=== PATIENT | female | born 1995 | race Caucasian/White ===

== ENCOUNTER 2023-02-07 03:39 | Emergency (ER) | payer OTHER ==
--- NOTE | 2023-02-07 03:48 | NUR ---
PT CALLED TO TRIAGE, NO RESPONSE.
--- NOTE | 2023-02-07 04:00 | NUR ---
PT CALLED TO TRIAGE NO RESPONSE.
== END 2023-02-07 04:47 | disposition left against medical advice (07) ==
LOC: ER 03:39
DX: Z53.21 Procedure and treatment not carried out due to patient leaving prior to being seen by health care provider (principal)

== ENCOUNTER 2023-02-10 08:53 | Emergency (ER) | payer OTHER ==
[~2023-02-10] VITALS: Ht 170.2 cm; Wt 77.1 kg
--- NOTE | 2023-02-10 09:20 | NUR ---
I had an allergic Reaction to Amox 1wk ago was given benadryl/steroids
[2023-02-10] MEDS ORDERED: LIDOCAINE VISCOUS 2% UD 15 ML UDC MM ONE (09:30)
--- NOTE | 2023-02-10 09:30 | NUR ---
DR CHAVEZ AT BEDSIDE FOR EVAL
[2023-02-10] MEDS ORDERED: LIDOCAINE VISCOUS 2% UD 15 ML UDC ONE (09:34)
--- NOTE | 2023-02-10 09:40 | NUR ---
PT GIVEN MEDICATION PO, [id number] VISCOUS
--- NOTE | 2023-02-10 09:47 | NUR ---
Patient discharged to home in stable condition. Written and verbal after care instructions given. Patient verbalizes understanding of instruction.
[2023-02-10 10:04] VITALS: BP 118/70
== END 2023-02-10 10:05 | disposition home or self-care (01) ==
LOC: ER 09:10
DX: R21 Rash and other nonspecific skin eruption (principal)